=== PATIENT | male | born 1955 | race Caucasian/White ===

== ENCOUNTER 2017-12-06 19:04 | Emergency (ER) | payer MEDICAID ==
[~2017-12-06] VITALS: Ht 177.8 cm; Wt 168.2 kg
[~2017-12-06 19:04] MED LIST: ASPI-1265 PO; DULO60CA45 PO; FAMO20TA9 PO; FURO-149 PO; INSU100V36 SQ; LOSA50TA37 PO; METF500T PO; OXYC30TA88 PO; POTA8TAB46 PO; PREG50CA PO; SITA100T15 PO
[2017-12-06] MEDS ORDERED: dextrose 10% 250ml bag IV ONE (19:45)
[2017-12-06 19:47] LABS: BASOPHILS % (AUTO) 0.3 % (0-1); EOSINOPHILS # (AUTO) 0.2 X10'3 (0-0.9); EOSINOPHILS % (AUTO) 2.4 % (0-6); HEMATOCRIT 46.3 % (42.0-52.0); HEMOGLOBIN 15.9 g/dl (14.0-17.9); LYMPHOCYTES # (AUTO) 1.5 X10'3 (1.1-4.8); LYMPHOCYTES % (AUTO) 19.4 % (21-51); MEAN CORPUSCULAR HGB CONC 34.3 % (33.0-36.5); MEAN CORPUSCULAR VOLUME 93.3 FL (78-98); MEAN PLATELET VOLUME 8.7 FL (7.4-10.4); MONOCYTES # (AUTO) 0.9 X10'3 (0-0.9); MONOCYTES % (AUTO) 11.1 % (2-12); NEUTROPHILS # (AUTO) 5.2 X10'3 (1.8-7.7); NEUTROPHILS % (AUTO) 66.8 % (42-75); PLATELET COUNT 116 X10'3 (140-440); RED BLOOD COUNT 4.95 X10'6 (4.70-6.10); RED CELL DISTRIBUTION WIDTH 14.6 % (11.5-14.5); WHITE BLOOD COUNT 7.8 X10'3 (4.5-11.0)
[2017-12-06] MEDS ORDERED: Dextrose 10%-water IV solution 1,000 ML IV ONE (19:50)
[2017-12-06 20:01] LABS: INR 1.1 INR; PARTIAL THROMBOPLASTIN TIME 26 SECONDS (22-32); PROTHROMBIN TIME 11.2 SECONDS (9.0-12.0)
[2017-12-06 20:05] LABS: ALANINE AMINOTRANSFERASE 21 U/L (12-78); ALBUMIN 2.8 G/DL (3.4-5.0); ALBUMIN/GLOBULIN RATIO 0.7 (1.1-1.5); ALKALINE PHOSPHATASE 111 IU/L (46-116); ANION GAP 8 (8-16); ASPARTATE AMINO TRANSFERASE 25 U/L (10-37); BILIRUBIN,TOTAL 0.7 MG/DL (0.1-1.0); BLOOD UREA NITROGEN 31 MG/DL (7-18); BUN/CREATININE RATIO 25.2 (5.4-32.0); CALCIUM 9.4 MG/DL (8.5-10.1); CHLORIDE 98 MMOL/L (99-107); CREATININE 1.23 MG/DL (0.60-1.10); GLUCOSE 65 MG/DL (70-104); POTASSIUM 3.9 MMOL/L (3.5-5.1); SODIUM 136 MMOL/L (135-145); TOTAL CARBON DIOXIDE 30.5 MMOL/L (24-32); TOTAL PROTEIN 7.1 G/DL (6.4-8.2); eGFR 60 ML/MIN
[2017-12-06] MEDS ORDERED: methylPREDNISolone sod succ 125mg/2ml vial IV ONE (20:20)
[2017-12-06] MEDS ORDERED: iohexol 350MG/ML 100ml bottle IV ONE ×2 (20:27→20:53)
[2017-12-06] MEDS ORDERED: ipratropium/albuterol 3ml nebule NEB ONE (21:10)
[2017-12-06] MEDS ORDERED: normal saline 1000ML IV soln IVB ONE (21:20)
[2017-12-06] MEDS: magnesium 1gm/100ml D5W IVPB 100 ML IV SCH ×2 (21:29→22:39)
[2017-12-06] MEDS ORDERED: DOXY100C43 PO (21:43)
[2017-12-06] MEDS ORDERED: PRED20TA PO (21:43)
[2017-12-06 22:01] LABS: ABG HCO3 26.8 mmol/L (22.0-26.0); ABG OXYGEN SATURATION 89.2 % (95-98); ABG PCO2 (T) 45.5 mmHg (35.0-48.0); ABG PH (T) 7.386 (7.350-7.450); ABG PO2 (T) 55.1 mmHg (83-108); ALLEN'S TEST Positive; FCOHb 3.6 % (0.5-1.5); FLOW 4 L/min; FMetHb 0.2 % (0.3-1.12); FO2Hb 85.8 % (94-100); PATIENT TEMPERATURE 36.4; RESPIRATORY RATE (OBSERVED) 16 b/min; TOTAL HEMOGLOBIN 16.7 G/dl (14.0-18.0)
[2017-12-06 23:30] VITALS: BP 136/59
== END 2017-12-07 00:12 | disposition home or self-care (01) ==
LOC: ER 19:05
DX: J44.1 Chronic obstructive pulmonary disease with (acute) exacerbation (principal); L03.116 Cellulitis of left lower limb; L03.115 Cellulitis of right lower limb; I10 Essential (primary) hypertension; I25.2 Old myocardial infarction; I25.10 Atherosclerotic heart disease of native coronary artery without angina pectoris; I48.91 Unspecified atrial fibrillation; E11.9 Type 2 diabetes mellitus without complications; G89.29 Other chronic pain; Z90.49 Acquired absence of other specified parts of digestive tract; Z98.890 Other specified postprocedural states; Z88.6 Allergy status to analgesic agent; Z88.8 Allergy status to other drugs, medicaments and biological substances; Z79.82 Long term (current) use of aspirin; Z79.4 Long term (current) use of insulin; Z79.84 Long term (current) use of oral hypoglycemic drugs; Z79.899 Other long term (current) drug therapy
CPT/HCPCS: 36415; 36600; 71045; 71275; 80053; 82803; 82948; 83605; 83880; 84145; 84484; 85018; 85025; 85379; 85610; 85730; 87040; 87077; 87186; 93005; 94640; 94760; 96365; 96366; 96375; 99285; J2930; J7030; Q9967

== ENCOUNTER 2019-05-17 08:21 | Emergency (ER) | payer MEDICAID ==
[~2019-05-17] VITALS: Ht 182.9 cm; Wt 155.0 kg
[~2019-05-17 08:21] MED LIST changes: -LOSA50TA37 PO; +LOSA50TA64 PO
[2019-05-17] MEDS ORDERED: famotidine/PF 10 mg/ml inj IV ONE (09:05)
[2019-05-17] MEDS ORDERED: predniSONE 20 mg tablet PO ONE (09:05)
--- NOTE | 2019-05-17 09:50 | NUR ---
radiology at bedside.
[2019-05-17 10:13] LABS: BASOPHILS % (AUTO) 0.6 % (0-1); EOSINOPHILS # (AUTO) 0.2 X10'3 (0-0.9); EOSINOPHILS % (AUTO) 2.4 % (0-6); HEMATOCRIT 44.5 % (42.0-52.0); HEMOGLOBIN 15.6 g/dl (14.0-17.9); LYMPHOCYTES # (AUTO) 1.1 X10'3 (1.1-4.8); LYMPHOCYTES % (AUTO) 15.9 % (21-51); MEAN CORPUSCULAR HEMOGLOBIN 32.7 PG (27.0-31.0); MEAN CORPUSCULAR VOLUME 93.5 FL (78-98); MEAN PLATELET VOLUME 8.8 FL (7.4-10.4); MONOCYTES # (AUTO) 0.5 X10'3 (0-0.9); MONOCYTES % (AUTO) 6.6 % (2-12); NEUTROPHILS # (AUTO) 5.2 X10'3 (1.8-7.7); NEUTROPHILS % (AUTO) 74.5 % (42-75); PLATELET COUNT 100 X10'3 (140-440); RED BLOOD COUNT 4.76 X10'6 (4.70-6.10); RED CELL DISTRIBUTION WIDTH 13.7 % (11.5-14.5); WHITE BLOOD COUNT 6.9 X10'3 (4.5-11.0)
--- NOTE | 2019-05-17 10:16 | NUR ---
Rojas NATH at bedside.
[2019-05-17 10:27] LABS: ALANINE AMINOTRANSFERASE 24 U/L (12-78); ALBUMIN 3.1 G/DL (3.4-5.0); ALBUMIN/GLOBULIN RATIO 0.6 (1.1-1.5); ALKALINE PHOSPHATASE 143 IU/L (46-116); ANION GAP 6 (8-16); ASPARTATE AMINO TRANSFERASE 29 U/L (10-37); BLOOD UREA NITROGEN 20 MG/DL (7-18); BUN/CREATININE RATIO 17.1 (5.4-32.0); CALCIUM 9.2 MG/DL (8.5-10.1); CHLORIDE 98 MMOL/L (99-107); CREATININE 1.17 MG/DL (0.60-1.10); GLUCOSE 247 MG/DL (70-104); SODIUM 133 MMOL/L (135-145); TOTAL CARBON DIOXIDE 28.7 MMOL/L (24-32); TOTAL PROTEIN 8.4 G/DL (6.4-8.2); eGFR 63 ML/MIN
[2019-05-17 10:34] LABS: MAGNESIUM 1.6 MG/DL (1.5-2.4)
[2019-05-17] MEDS ORDERED: normal saline 1000ML IV soln IVB ONE (10:45)
[2019-05-17 12:33] VITALS: BP 121/71
== END 2019-05-17 12:36 | disposition home or self-care (01) ==
LOC: ER 08:22
DX: R11.10 Vomiting, unspecified (principal); L29.9 Pruritus, unspecified; T45.0X5A Adverse effect of antiallergic and antiemetic drugs, initial encounter; I48.91 Unspecified atrial fibrillation; I25.10 Atherosclerotic heart disease of native coronary artery without angina pectoris; I10 Essential (primary) hypertension; I25.2 Old myocardial infarction; E11.9 Type 2 diabetes mellitus without complications; G89.29 Other chronic pain; Z90.49 Acquired absence of other specified parts of digestive tract; Z98.890 Other specified postprocedural states; Z88.6 Allergy status to analgesic agent; Z79.82 Long term (current) use of aspirin; Z79.4 Long term (current) use of insulin; Z79.899 Other long term (current) drug therapy; Y92.9 Unspecified place or not applicable
CPT/HCPCS: 36415; 71045; 80053; 83605; 83735; 83880; 84145; 84484; 85025; 93005; 96361; 96374; 99284; J3490; J7030; J7512

== ENCOUNTER 2020-08-15 17:00 | Emergency (ER) | payer MEDICAID ==
[~2020-08-15] VITALS: Ht 182.9 cm; Wt 150.0 kg
[~2020-08-15 17:00] MED LIST changes: +OXYC30TA PO; -OXYC30TA88 PO
[2020-08-15 18:18] LABS: BASOPHILS % (AUTO) 0.3 % (0-1); EOSINOPHILS # (AUTO) 0.1 X10'3 (0-0.9); EOSINOPHILS % (AUTO) 0.5 % (0-6); HEMATOCRIT 42.4 % (42.0-52.0); HEMOGLOBIN 14.4 g/dl (14.0-17.9); LYMPHOCYTES # (AUTO) 0.5 X10'3 (1.1-4.8); LYMPHOCYTES % (AUTO) 4.7 % (21-51); MEAN CORPUSCULAR HEMOGLOBIN 33.3 PG (27.0-31.0); MEAN CORPUSCULAR VOLUME 97.7 FL (78-98); MEAN PLATELET VOLUME 9.7 FL (7.4-10.4); MONOCYTES # (AUTO) 0.6 X10'3 (0-0.9); MONOCYTES % (AUTO) 5.3 % (2-12); NEUTROPHILS # (AUTO) 10.4 X10'3 (1.8-7.7); NEUTROPHILS % (AUTO) 89.2 % (42-75); PLATELET COUNT 88 X10'3 (140-440); RED BLOOD COUNT 4.34 X10'6 (4.70-6.10); RED CELL DISTRIBUTION WIDTH 14.6 % (11.5-14.5); WHITE BLOOD COUNT 11.6 X10'3 (4.5-11.0)
[2020-08-15 18:31] LABS: PARTIAL THROMBOPLASTIN TIME 27 SECONDS (22-32)
[2020-08-15 18:42] LABS: ALANINE AMINOTRANSFERASE 18 U/L (12-78); ALBUMIN 2.8 G/DL (3.4-5.0); ALBUMIN/GLOBULIN RATIO 0.6 (1.1-1.5); ALKALINE PHOSPHATASE 89 IU/L (46-116); ANION GAP 4 (8-16); ASPARTATE AMINO TRANSFERASE 24 U/L (10-37); BILIRUBIN,TOTAL 1.2 MG/DL (0.1-1.0); BLOOD UREA NITROGEN 28 MG/DL (7-18); BUN/CREATININE RATIO 22.4 (5.4-32.0); CHLORIDE 100 MMOL/L (99-107); CREATININE 1.25 MG/DL (0.60-1.10); GLUCOSE 246 MG/DL (70-104); POTASSIUM 4.1 MMOL/L (3.5-5.1); SODIUM 138 MMOL/L (135-145); TOTAL CARBON DIOXIDE 33.7 MMOL/L (24-32); TOTAL PROTEIN 7.7 G/DL (6.4-8.2); eGFR 58 ML/MIN
--- NOTE | 2020-08-15 20:21 | NUR ---
PTS CAREGIVER, ALVINA GE, CALLING FOR UPDATE. CALL TRANSFERRED INTO THE PTS ROOM TO TALK TO DAUGHTER AND PT. PHAM HORNE AT BEDSIDE TO UPDATE ON PLAN OF CARE.
--- NOTE | 2020-08-15 20:27 | NUR ---
patient wants to go home: oswaldo san agreeing
[2020-08-15] MEDS ORDERED: ALBU8.5H8 INH (20:30)
[2020-08-15 20:55] VITALS: BP 103/85
== END 2020-08-15 20:45 | disposition home or self-care (01) ==
LOC: ER 17:00
DX: J44.1 Chronic obstructive pulmonary disease with (acute) exacerbation (principal); L97.529 Non-pressure chronic ulcer of other part of left foot with unspecified severity; L97.519 Non-pressure chronic ulcer of other part of right foot with unspecified severity; R60.0 Localized edema; I25.10 Atherosclerotic heart disease of native coronary artery without angina pectoris; I10 Essential (primary) hypertension; I25.2 Old myocardial infarction; E11.9 Type 2 diabetes mellitus without complications; G89.29 Other chronic pain; I48.91 Unspecified atrial fibrillation; F32.9 Major depressive disorder, single episode, unspecified; Z90.49 Acquired absence of other specified parts of digestive tract; Z98.890 Other specified postprocedural states; Z88.6 Allergy status to analgesic agent; Z88.8 Allergy status to other drugs, medicaments and biological substances; Z79.82 Long term (current) use of aspirin; Z79.84 Long term (current) use of oral hypoglycemic drugs; Z79.899 Other long term (current) drug therapy
CPT/HCPCS: 36415; 71045; 76937; 80053; 82948; 83605; 83880; 84484; 85025; 85610; 85730; 87040; 87077; 87186; 93005; 99285

== ENCOUNTER 2023-04-11 18:58 | Inpatient (IN) | payer BC, MEDICAID ==
[~2023-04-11] VITALS: Ht 182.9 cm; Wt 147.7 kg
[~2023-04-11 18:58] MED LIST changes: +ALBU8.5H17 INH; -DULO60CA45 PO; +DULO60CA61 PO
[2023-04-11 20:27] LABS: BASOPHILS % (AUTO) 0.3 % (0-1); EOSINOPHILS % (AUTO) 0.1 % (0-6); LYMPHOCYTES # (AUTO) 0.9 X10'3 (1.1-4.8); LYMPHOCYTES % (AUTO) 10.3 % (21-51); MEAN PLATELET VOLUME 8.6 FL (7.4-10.4); MONOCYTES # (AUTO) 0.5 X10'3 (0-0.9); MONOCYTES % (AUTO) 6.3 % (2-12); NEUTROPHILS # (AUTO) 6.9 X10'3 (1.8-7.7); PLATELET COUNT 89 X10'3 (140-440); WHITE BLOOD COUNT 8.3 X10'3 (4.5-11.0)
[2023-04-11 20:32] LABS: POTASSIUM 4.8 MMOL/L (3.5-5.1)
[2023-04-11 21:06] LABS: HEMATOCRIT 37.2 % (42.0-52.0); MEAN CORPUSCULAR HEMOGLOBIN 24.8 PG (27.0-31.0); MEAN CORPUSCULAR VOLUME 76.6 FL (78-98); RED BLOOD COUNT 4.85 X10'6 (4.70-6.10)
[2023-04-11 21:07] LABS: MEAN CORPUSCULAR HGB CONC 32.3 g/dL (33.0-36.5); RED CELL DISTRIBUTION WIDTH 18.6 % (11.5-14.5)
[2023-04-11 21:08] LABS: ALBUMIN 3.3 G/DL (3.4-5.0); ALKALINE PHOSPHATASE 100 IU/L (46-116); BLOOD UREA NITROGEN 23 MG/DL (7-18); SODIUM 140 MMOL/L (135-145)
[2023-04-11 21:23] LABS: INR 1.1 INR; PROTHROMBIN TIME 11.4 SECONDS (9.0-12.0)
[2023-04-11 21:31] LABS: ABG BASE EXCESS 5.6 mmol/L (-2.0-2.0); ABG HCO3 33.8 mmol/L (22.0-26.0); ABG OXYGEN SATURATION 85.2 % (94-97); ABG PCO2 (T) 66.6 mmHg (35.0-48.0); ABG PH (T) 7.322 (7.340-7.440); ALLEN'S TEST POSITIVE; FCOHb 2.1 % (0.0-3.9); FHHb 14.5 % (0.0-5.0); FMetHb 0.2 % (0.0-1.5); FO2Hb 83.2 % (94-97); MODE ROOM AIR; PATIENT TEMPERATURE 36.7
[2023-04-11 22:23] LABS: ALANINE AMINOTRANSFERASE 17 U/L (12-78); ALBUMIN/GLOBULIN RATIO 0.7 (1.1-1.5); ANION GAP 6 (8-16); ASPARTATE AMINO TRANSFERASE 25 U/L (10-37); BUN/CREATININE RATIO 21.1 (10.0-20.0); CALCIUM 9.6 MG/DL (8.5-10.1); CHLORIDE 101 MMOL/L (99-107); CREATININE 1.09 MG/DL (0.60-1.10); GLUCOSE 156 MG/DL (70-104); TOTAL CARBON DIOXIDE 33.4 MMOL/L (24-32); TOTAL PROTEIN 8.2 G/DL (6.4-8.2); eCRCL 73 ML/MIN; eGFR 68 ML/MIN
[2023-04-11] MEDS ORDERED: levoFLOXACIN-Levaquin 750MG/D5 150 ML IV ONE (22:39)
[2023-04-11 22:59] LABS: ABG BASE EXCESS 7.9 mmol/L (-2.0-2.0); ABG HCO3 36.4 mmol/L (22.0-26.0); ABG OXYGEN SATURATION 91.4 % (94-97); ABG PCO2 (T) 70.3 mmHg (35.0-48.0); ABG PO2 (T) 60.6 mmHg (75.0-100.0); ALLEN'S TEST Modified; FHHb 8.4 % (0.0-5.0); FMetHb 0.1 % (0.0-1.5); FO2Hb 89.5 % (94-97); MODE MASK - VENTI; PATIENT TEMPERATURE 36.7
[2023-04-11 23:15] VITALS: PULSE 83; RESP 16; O2SAT 96
[2023-04-12] VITALS (18 sets, daily range): BP systolic 105–159; BP diastolic 63–84; PULSE 84–117; RESP 16–34; TEMP 98.2–99.3; O2SAT 86–98
[2023-04-12] MEDS ORDERED: acetaminophen 325mg tablet PO PRN ×2 (00:20)
[2023-04-12] MEDS ORDERED: potassium Cl 40MEQ/1/2NS 520ml 520 ML IV PRN (00:20)
[2023-04-12] MEDS ORDERED: magnesium Cl slow-release 64mg tablet PO PRN (00:20)
[2023-04-12] MEDS ORDERED: potassium Cl 20 mEq SR tablet PO PRN ×2 (00:20)
[2023-04-12] MEDS ORDERED: magnesium 2GM in 50ml NS 50 ML IV PRN (00:20)
[2023-04-12] MEDS ORDERED: ondansetron/PF 4mg/2ml inj IV PRN (00:20)
[2023-04-12] MEDS ORDERED: magnesium 4gm in 100ml NS 100 ML IV PRN (00:20)
[2023-04-12 00:49] LABS: ABG BASE EXCESS 7.3 mmol/L (-2.0-2.0); ABG HCO3 34.9 mmol/L (22.0-26.0); ABG PCO2 (T) 63.2 mmHg (35.0-48.0); ABG PH (T) 7.359 (7.340-7.440); ABG PO2 (T) 80.1 mmHg (75.0-100.0); ALLEN'S TEST POSITIVE; FCOHb 1.7 % (0.0-3.9); FHHb 3.9 % (0.0-5.0); FMetHb 0.2 % (0.0-1.5); FO2Hb 94.2 % (94-97); MODE MASK - BIPAP; PATIENT TEMPERATURE 36.7; RESPIRATORY RATE 14 b/min; TOTAL HEMOGLOBIN 12.9 G/dl (14.0-17.9)
--- NOTE | 2023-04-12 01:28 | NUR ---
0115: PT TOOK OFF BIPAP MASK. RN WENT INTO ROOM TO ATTEMPT TO GET PT TO LET STAFF PUT MASK BACK ON. PT CONTINUED TO REFUSE TO HAVE BIPAP PUT BACK IN PLACE. RT CAME INTO ROOM AND ALSO TRIED TO GET PT TO ALLOW STAFF TO PLACE BIPAP BACK ON HIM. IT WAS EXPLAINED TO PT THAT THE MASK WAS HELPING HIM TO BREATH AND THAT WITHOUT IT HIS OXYGEN LEVEL WAS TOO LOW AND THAT IT WAS ALSO HELPING HIM TO BREATH BETTER. PT CONTINUED TO REFUSE. VENTURI MASK WAS ALSO ATTEMPTED BUT PT CONTINUED TO REFUSE. N/C ALSO ATTEMPT BUT AGAIN PT REFUSED. SOFIA HERNDON CAME INTO ROOM TO HELP CONVINCE PT TO LET STAFF PUT ANY FORM OF OXYGEN BACK ON HIM, SPECIFICALLY THE BIPAP. PT CONTINUED TO REFUSE. PT WAS MADE AWARE THAT HE WAS IN THE HOSPITAL TO GET HELP BUT THAT IF HE WASN'T GOING TO ALLOW STAFF TO HELP HIM THEN HE COULD GO HOME BUT THAT GOING HOME COULD MEAN THAT HE WOULD D/T HOW POORLY HIS BREATHING HAD AND HAS BEEN. PT THEN STARTED TO BECOME MORE VERBALLY AGGRESSIVE TOWARDS STAFF AND STARTED TO PULL ON HIS OXYGEN TUBING, TEARING HIS SHEATS OFF OF HIM, AND TO CLILMB OUT OF BED SAYING THAT HE WAS LEAVING. SECURITY WAS CALLED INTO THE ROOM WELL TO ASSIST AND ENSURE STAFF SAFETY.
--- NOTE | 2023-04-12 01:33 | NUR ---
PATIENT VERBALLY ABUSING STAFF REFUSING TO WEAR BI-PAP, WANTS TO GET UP AND LEAVE ATTEMPTING TO EDUCATE PATIENT THAT THEY ARE CONFUSED AND NEED TO STAY IN HOSPITAL AND KEEP BI-PAP ON , PATIENT REFUSING SECURITY CALLED FOR STAFF PROTECTION HOSPITALIST DR. GONZALEZ AND ED DR. TAMEZ BOTH NOTIFIED AND CURRENTLY AT DRChapis STATION DISCUSSING PATIENT, PATIENT IS ADMITTED WITH ADMISSION ORDERS IN DR. GONZALEZ NAME
--- NOTE | 2023-04-12 02:06 | NUR ---
PATIENT CONTINUES TO REFUSE TO WEAR ANY TYPE OF OXYGEN FOR STAFF. PATIENT RESTLESS, SITTING AT END OF BED, STANDING, WANTING TO WALK AROUND BUT UNABLE TO WALK WITHOUT HOLDING ONTO SOMETHING OR SOMEONE, PATIENT UNABLE STAND UP STRAIGHT. PATIENT ALSO DOESN'T WANT ANY MONITORING EQUIPMENT IN PLACE, WILL MOMENTARILY ALLOW EAR SPO2 TO BE PLACED ON HIM BUT WILL PULL IT OFF AFTR ONLY A FEW MINUTES. WAITING ON HOSPITALIST TO COME DOWN TO ASSESS AND POSSIBLY AMA PATIENT.
--- NOTE | 2023-04-12 02:10 | NUR ---
HOSPITALIST IN ROOM TRYING TO EXPLAIN CARE AND IMPORTANCE OF BIPAP AND OXYGEN TO PATIENT.
--- NOTE | 2023-04-12 02:14 | NUR ---
at bedside assessing patient do to patient wanting to leave ama
[2023-04-12] MEDS ORDERED: etomidate 2mg/ml inj. IV ONE (02:20)
[2023-04-12] MEDS ORDERED: succinylcholine 20mg/ml inj IV ONE (02:20)
[2023-04-12] MEDS ORDERED: LORazepam 2 mg/ml vial IV ONE ×3 (02:30→04:10)
--- NOTE | 2023-04-12 02:47 | NUR ---
0140: AFTER RECEIVING 2MG OF ATIVAN IV PATIENT FINALLY ALLOWED STAFF TO PLACE N/C AT 6L ON HIM AND EAR SPO2 MONITOR. 0145: PATIENT ASLEEP BUT WILL WAKE WITH MINIMAL STIMULATION. 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
[2023-04-12] MEDS: furosemide 20 MG/2 ML vial IV SCH ×3 (02:55→20:00)
[2023-04-12] MEDS: ipratropium/albuterol 3ml nebule NEB SCH ×6 (04:04→23:11)
--- NOTE | 2023-04-12 07:01 | NUR ---
Patient aggitated and confused, pulling at lines and attempting to leave. Patient encouraged to keep on nasal cannula. 1mg IV Ativan given. Patient then more cooperative and tolerating nasal cannula.
--- NOTE | 2023-04-12 07:18 | NUR ---
paged rt for bed 5, new neb txt
--- NOTE | 2023-04-12 08:00 | NUR ---
RT AND ECHO AT BEDSIDE
--- NOTE | 2023-04-12 08:41 | NUR ---
Patient in room ED 5. I have received report from Karyn BLACK and had the opportunity to ask questions and assume patient care.
--- NOTE | 2023-04-12 08:46 | NUR ---
Report called to SOFIA Muniz on PCU.
[2023-04-12] MEDS: methylPREDNISolone sod succ/PF 40mg inj. IV SCH ×2 (08:54→21:00)
[2023-04-12] MEDS: CefTRIAXone 2gm/D5W 50ml BAG 50 ML IV SCH (08:55)
--- NOTE | 2023-04-12 09:03 | NUR ---
TECH PAGED DR WILKES FOR PRN
--- NOTE | 2023-04-12 10:33 | NUR ---
Page Sent promotional table spacer PAGER ID: [phone] MESSAGE: [id number] Case. PT confused and combative. Paulino wilkinson called. pulling at lines, getting out of bed, combative toward staff. PT had to be restrained. I need orders for restraints , and a sitter. ALIYAHN jv conner. Bipap is on. Dalila @[phone] (240 character message out of a maximum of [phone]) CLOSE [X] SEND ANOTHER PAGE
[2023-04-12] MEDS ORDERED: haloperidol lactate 5mg/ml inj IM PRN (10:40)
[2023-04-12] MEDS ORDERED: LidoCAINE 2% Topical Jelly 11mL syringe TOP ONE (10:40)
--- NOTE | 2023-04-12 10:49 | NUR ---
late entry patient unable to follow directions, very confused and retaining Co2. Patient pulling at all lines and oxygen and became combative towards staff and would not stay in bed . 3 pt soft restraints were applied. I received telephone orders from Dr. Hernandez for a sitter, restraints, and haldol 5mg IM Q8 hrs prn for agitation and 2 mg ativan Q6H prn for agitation /aggression.
[2023-04-12] MEDS ORDERED: NYSTATIN 30 GM POWDER TP SCH (13:00)
[2023-04-12] MEDS: nystatin 15 GM powder TP SCH ×2 (13:00→21:13)
[2023-04-12 14:30] LABS: BASOPHILS % (AUTO) 0.2 % (0-1); EOSINOPHILS % (AUTO) 0.1 % (0-6); HEMATOCRIT 37.2 % (42.0-52.0); HEMOGLOBIN 11.6 g/dl (14.0-17.9); LYMPHOCYTES # (AUTO) 0.4 X10'3 (1.1-4.8); LYMPHOCYTES % (AUTO) 7.2 % (21-51); MEAN CORPUSCULAR HEMOGLOBIN 24.1 PG (27.0-31.0); MEAN CORPUSCULAR VOLUME 77.8 FL (78-98); MEAN PLATELET VOLUME 9.2 FL (7.4-10.4); MONOCYTES # (AUTO) 0.1 X10'3 (0-0.9); MONOCYTES % (AUTO) 1.3 % (2-12); NEUTROPHILS # (AUTO) 5.2 X10'3 (1.8-7.7); NEUTROPHILS % (AUTO) 91.2 % (42-75); PLATELET COUNT 86 X10'3 (140-440); RED BLOOD COUNT 4.79 X10'6 (4.70-6.10); WHITE BLOOD COUNT 5.7 X10'3 (4.5-11.0)
[2023-04-12 14:48] LABS: ANION GAP 4 (8-16); BLOOD UREA NITROGEN 22 MG/DL (7-18); BUN/CREATININE RATIO 22.9 (10.0-20.0); CALCIUM 9.3 MG/DL (8.5-10.1); CHLORIDE 102 MMOL/L (99-107); CREATININE 0.96 MG/DL (0.60-1.10); GLUCOSE 191 MG/DL (70-104); POTASSIUM 4.4 MMOL/L (3.5-5.1); SODIUM 141 MMOL/L (135-145); TOTAL CARBON DIOXIDE 34.7 MMOL/L (24-32); eCRCL 83 ML/MIN; eGFR 78 ML/MIN
[2023-04-12 14:54] LABS: HEMOGLOBIN A1C 6.3 % (4.5-6.2)
--- NOTE | 2023-04-12 18:37 | NUR ---
Problems reprioritized. Patient report given, questions answered & plan of care reviewed with Julia BLACK. Patient resting in bed in no acute distress.
[2023-04-12] MEDS: LORazepam 2 mg/ml vial IV PRN (21:00)
[2023-04-12] MEDS: enoxaparin 40mg/0.4ml syringe SQ SCH (21:00)
--- NOTE | 2023-04-12 21:00 | NUR ---
ATIVAN 2 MG GIVEN IV FOR AGITATION. DRUG SCANNED AND GIVEN BUT NOT SAVED ON EMAR
[2023-04-13] VITALS (20 sets, daily range): BP systolic 144–166; BP diastolic 60–84; PULSE 81–98; RESP 16–29; TEMP 97.4–98.4; O2SAT 89–96
[2023-04-13] MEDS: LORazepam 2 mg/ml vial IV PRN ×4 (02:35→23:09)
[2023-04-13] MEDS: ipratropium/albuterol 3ml nebule NEB SCH ×6 (03:27→23:28)
--- NOTE | 2023-04-13 06:13 | NUR ---
Patient in room PCU 3026. I have received report from Julia BLACK and had the opportunity to ask questions and assume patient care.Patient is resting in bed in no acute distress.
--- NOTE | 2023-04-13 06:24 | NUR ---
Patient report given, questions answered & plan of care reviewed with SOFIA Muniz
[2023-04-13] MEDS: CefTRIAXone 2gm/D5W 50ml BAG 50 ML IV SCH (07:26)
[2023-04-13] MEDS: furosemide 20 MG/2 ML vial IV SCH ×2 (07:26→19:47)
[2023-04-13] MEDS: nystatin 15 GM powder TP SCH ×3 (07:26→21:41)
[2023-04-13] MEDS: methylPREDNISolone sod succ/PF 40mg inj. IV SCH ×2 (07:26→19:47)
[2023-04-13 07:33] LABS: BASOPHILS % (AUTO) 0.1 % (0-1); EOSINOPHILS % (AUTO) 0 % (0-6); HEMATOCRIT 36.6 % (42.0-52.0); HEMOGLOBIN 11.2 g/dl (14.0-17.9); LYMPHOCYTES # (AUTO) 0.8 X10'3 (1.1-4.8); LYMPHOCYTES % (AUTO) 12.9 % (21-51); MEAN CORPUSCULAR HEMOGLOBIN 23.9 PG (27.0-31.0); MEAN CORPUSCULAR HGB CONC 30.7 g/dL (33.0-36.5); MEAN CORPUSCULAR VOLUME 77.8 FL (78-98); MEAN PLATELET VOLUME 8.3 FL (7.4-10.4); MONOCYTES # (AUTO) 0.5 X10'3 (0-0.9); MONOCYTES % (AUTO) 7.3 % (2-12); NEUTROPHILS # (AUTO) 5.1 X10'3 (1.8-7.7); NEUTROPHILS % (AUTO) 79.7 % (42-75); PLATELET COUNT 80 X10'3 (140-440); RED CELL DISTRIBUTION WIDTH 19.2 % (11.5-14.5); WHITE BLOOD COUNT 6.4 X10'3 (4.5-11.0)
[2023-04-13 07:48] LABS: ALANINE AMINOTRANSFERASE 8 U/L (12-78); ALBUMIN 2.9 G/DL (3.4-5.0); ALBUMIN/GLOBULIN RATIO 0.7 (1.1-1.5); ALKALINE PHOSPHATASE 84 IU/L (46-116); ANION GAP 3 (8-16); ASPARTATE AMINO TRANSFERASE 19 U/L (10-37); BILIRUBIN,TOTAL 0.7 MG/DL (0.1-1.0); BLOOD UREA NITROGEN 26 MG/DL (7-18); BUN/CREATININE RATIO 23.2 (10.0-20.0); CALCIUM 9.5 MG/DL (8.5-10.1); CHLORIDE 105 MMOL/L (99-107); CREATININE 1.12 MG/DL (0.60-1.10); GLUCOSE 177 MG/DL (70-104); SODIUM 145 MMOL/L (135-145); TOTAL CARBON DIOXIDE 36.6 MMOL/L (24-32); TOTAL PROTEIN 7.2 G/DL (6.4-8.2); eCRCL 71 ML/MIN; eGFR 66 ML/MIN
--- NOTE | 2023-04-13 08:13 | NUR ---
ASSISTING RN WITH PT CARE, 2 NURSES HAVE ATTEMPTED IV STARTED, NOT SUCCESSFUL, WILL PAGE PICC NURSE
[2023-04-13 11:14] LABS: ANISOCYTOSIS 2+; MICROCYTOSIS 1+; PLATELET ESTIMATE DECREASED
[2023-04-13 11:36] LABS: STOMATOCYTES FEW
[2023-04-13] MEDS ORDERED: glucagon, human recombinant 1mg kit SUBCUT PRN ×2 (11:40→12:30)
[2023-04-13] MEDS ORDERED: MESSAGE TO PHARMACY PO ONE ×2 (11:40→12:30)
[2023-04-13] MEDS ORDERED: insulin Lispro (HumaLOG) vial - multi-dose SQ SCH ×2 (11:40→12:30)
[2023-04-13] MEDS ORDERED: dextrose 50%-water 50ml dispensing syringe IV PRN ×4 (11:40→12:30)
[2023-04-13] MEDS ORDERED: DEXTROSE 15 GM of carb/4 tabs (each vial/BOTTLE has 4 tablets) PO PRN ×4 (11:40→12:30)
--- NOTE | 2023-04-13 13:13 | NUR ---
PRESSURE ULCER EDUCATION: DEFINITION: A pressure ulcer is an area of skin that breaks down when you stay in one position too long. The constant pressure against the skin reduces the blood flow to that area and the affected tissue dies. CAUSES: "Being bedridden or in a wheelchair "Fragile skin "Having a chronic condition, such as diabetes or vascular disease "Inability to move certain parts of your body without assistance "Older age "Incontinence of urine or stool SYMPTOMS: "A reddened area that DOES NOT turn white when pressed on - this can be the beginning of a pressure ulcer "A blister, deep sore or a crater - these can be advanced pressure ulcers FIRST AID: "Relieve the pressure on this area "Keep the area clean and dry "Call your primary doctor if you see any of the above symptoms "DO NOT massage the area "DO NOT use a donut shaped or ring shaped pillow- these actually interfere with the blood flow and cause complications PREVENTION: "Check for pressure ulcers everyday "Change position at least every two hours to relieve pressure "Use items that help relieve pressure- pillows, sheepskin, foam padding, and powders. "Keep skin clean and dry "Eat healthy well balanced meals "Exercise daily IF YOU SEE ANY OF THESE SYMPTOMS WHILE IN THE HOSPITAL - TELL YOUR NURSE IMMEDIATELY. IF YOU SEE ANY OF THESE SYMPTOMS WHILE AT HOME OR HAVE ANY QUESTIONS OR CONCERNS ABOUT PRESSURE ULCERS - CALL YOUR PRIMARY DOCTOR IMMEDIATELY. Addendum: 04/13/23 at 1313 by Kevon Dias RN Amended: Links added.
[2023-04-13] MEDS ORDERED: PIOG45TA65 PO (13:50)
[2023-04-13] MEDS ORDERED: DULO60CA65 PO (13:50)
[2023-04-13] MEDS ORDERED: FURO80TA3 PO (13:50)
[2023-04-13] MEDS ORDERED: OXYC1TAB15 PO (13:50)
[2023-04-13] MEDS ORDERED: PYRI-3 PO (13:50)
[2023-04-13] MEDS ORDERED: FEXO-310 PO (13:50)
[2023-04-13] MEDS ORDERED: FLO0.4C PO (13:50)
[2023-04-13] MEDS ORDERED: FOLI1TAB27 PO (13:50)
[2023-04-13] MEDS ORDERED: CARV3.122 PO (13:50)
[2023-04-13] MEDS ORDERED: ASPI-1397 PO (13:50)
[2023-04-13] MEDS ORDERED: PREG75CA76 PO (13:50)
[2023-04-13] MEDS ORDERED: METF-438 PO (13:50)
[2023-04-13] MEDS ORDERED: LOVA40TA2 PO (13:50)
[2023-04-13] MEDS ORDERED: PANT40TA54 PO (13:50)
[2023-04-13] MEDS ORDERED: BUDE10.22 PO (13:50)
[2023-04-13] MEDS ORDERED: POTA-206 PO (13:50)
[2023-04-13] MEDS: enoxaparin 40mg/0.4ml syringe SQ SCH (19:43)
[2023-04-13] MEDS ORDERED: insulin glargine (Lantus) pen - multi-dose SQ SCH (21:00)
[2023-04-13] MEDS: insulin glargine (Lantus) pen - multi-dose SQ SCH (21:40)
[2023-04-14] VITALS (16 sets, daily range): BP systolic 131–151; BP diastolic 48–71; PULSE 70–89; RESP 12–26; TEMP 97.7–98.8; O2SAT 90–99
[2023-04-14] MEDS: ipratropium/albuterol 3ml nebule NEB SCH ×6 (03:48→23:00)
[2023-04-14] MEDS: nystatin 15 GM powder TP SCH ×3 (08:00→22:25)
[2023-04-14 08:01] LABS: BASOPHILS % (AUTO) 0.1 % (0-1); EOSINOPHILS % (AUTO) 0 % (0-6); HEMATOCRIT 36.9 % (42.0-52.0); HEMOGLOBIN 11.4 g/dl (14.0-17.9); LYMPHOCYTES # (AUTO) 0.8 X10'3 (1.1-4.8); LYMPHOCYTES % (AUTO) 9.7 % (21-51); MEAN CORPUSCULAR HEMOGLOBIN 23.8 PG (27.0-31.0); MEAN CORPUSCULAR VOLUME 76.9 FL (78-98); MEAN PLATELET VOLUME 8.4 FL (7.4-10.4); MONOCYTES # (AUTO) 0.5 X10'3 (0-0.9); MONOCYTES % (AUTO) 6.2 % (2-12); NEUTROPHILS # (AUTO) 6.7 X10'3 (1.8-7.7); PLATELET COUNT 94 X10'3 (140-440); RED CELL DISTRIBUTION WIDTH 19.2 % (11.5-14.5)
[2023-04-14] MEDS: methylPREDNISolone sod succ/PF 40mg inj. IV SCH ×2 (08:01→20:22)
[2023-04-14] MEDS: furosemide 20 MG/2 ML vial IV SCH ×2 (08:15→20:23)
[2023-04-14 08:16] LABS: ALANINE AMINOTRANSFERASE 18 U/L (12-78); ALBUMIN 3.1 G/DL (3.4-5.0); ALBUMIN/GLOBULIN RATIO 0.7 (1.1-1.5); ALKALINE PHOSPHATASE 79 IU/L (46-116); ANION GAP 6 (8-16); ASPARTATE AMINO TRANSFERASE 27 U/L (10-37); BILIRUBIN,TOTAL 0.9 MG/DL (0.1-1.0); BLOOD UREA NITROGEN 26 MG/DL (7-18); CALCIUM 9.5 MG/DL (8.5-10.1); CHLORIDE 99 MMOL/L (99-107); GLUCOSE 146 MG/DL (70-104); SODIUM 137 MMOL/L (135-145); TOTAL CARBON DIOXIDE 32.2 MMOL/L (24-32); TOTAL PROTEIN 7.3 G/DL (6.4-8.2); eCRCL 80 ML/MIN; eGFR 75 ML/MIN
[2023-04-14 08:18] LABS: POTASSIUM 3.7 MMOL/L (3.5-5.1)
[2023-04-14] MEDS: CefTRIAXone 2gm/D5W 50ml BAG 50 ML IV SCH (09:06)
--- NOTE | 2023-04-14 10:24 | NUR ---
promotional table spacer promotional table spacer Page Sent promotional table spacer PAGER ID: [phone] MESSAGE: ROOM 17a-in presence of pt's corrected CO2, pt is still confused-would you like nursing to bring him down for head CT? He is able to sit still; please advise-Josephine/Mary [phone]
[2023-04-14] MEDS: HYDROcodone/acetaminophen 5mg/325mg tablet PO PRN ×2 (16:42→22:25)
--- NOTE | 2023-04-14 18:40 | NUR ---
Patient in room PCU 3017. I have received report from Josephine BLACK and had the opportunity to ask questions and assume patient care.
[2023-04-14] MEDS: enoxaparin 40mg/0.4ml syringe SQ SCH (20:00)
[2023-04-14] MEDS: insulin glargine (Lantus) pen - multi-dose SQ SCH (22:15)
[2023-04-15 02:00] VITALS: BP 138/45; PULSE 89; RESP 20; TEMP 98.3; O2SAT 93
[2023-04-15] MEDS: ipratropium/albuterol 3ml nebule NEB SCH (03:00)
[2023-04-15 05:06] VITALS: O2SAT 93
[2023-04-15 06:00] VITALS: BP 110/65; PULSE 92; RESP 16; TEMP 98.6; O2SAT 97
--- NOTE | 2023-04-15 06:26 | NUR ---
Patient in room PCU 3017. I have received report from Traci BLACK and had the opportunity to ask questions and assume patient care.
--- NOTE | 2023-04-15 06:30 | NUR ---
Problems reprioritized. Patient report given, questions answered & plan of care reviewed with Suzy BLACK.
[2023-04-15 06:40] LABS: BASOPHILS # (AUTO) 0.1 X10'3 (0-0.2); BASOPHILS % (AUTO) 0.8 % (0-1); EOSINOPHILS % (AUTO) 0 % (0-6); HEMATOCRIT 37.7 % (42.0-52.0); HEMOGLOBIN 11.7 g/dl (14.0-17.9); LYMPHOCYTES # (AUTO) 0.7 X10'3 (1.1-4.8); MEAN CORPUSCULAR HEMOGLOBIN 23.9 PG (27.0-31.0); MEAN CORPUSCULAR HGB CONC 31.1 g/dL (33.0-36.5); MEAN CORPUSCULAR VOLUME 76.9 FL (78-98); MEAN PLATELET VOLUME 8.1 FL (7.4-10.4); MONOCYTES # (AUTO) 0.5 X10'3 (0-0.9); NEUTROPHILS # (AUTO) 5.9 X10'3 (1.8-7.7); NEUTROPHILS % (AUTO) 82.2 % (42-75); PLATELET COUNT 105 X10'3 (140-440); RED CELL DISTRIBUTION WIDTH 19.3 % (11.5-14.5); WHITE BLOOD COUNT 7.2 X10'3 (4.5-11.0)
[2023-04-15 06:55] LABS: ALANINE AMINOTRANSFERASE 27 U/L (12-78); ALBUMIN 3.3 G/DL (3.4-5.0); ALBUMIN/GLOBULIN RATIO 0.8 (1.1-1.5); ALKALINE PHOSPHATASE 82 IU/L (46-116); ANION GAP 8 (8-16); ASPARTATE AMINO TRANSFERASE 34 U/L (10-37); BILIRUBIN,TOTAL 1.3 MG/DL (0.1-1.0); BLOOD UREA NITROGEN 32 MG/DL (7-18); BUN/CREATININE RATIO 29.6 (10.0-20.0); CALCIUM 9.6 MG/DL (8.5-10.1); CHLORIDE 97 MMOL/L (99-107); CREATININE 1.08 MG/DL (0.60-1.10); GLUCOSE 170 MG/DL (70-104); POTASSIUM 3.6 MMOL/L (3.5-5.1); SODIUM 135 MMOL/L (135-145); TOTAL PROTEIN 7.5 G/DL (6.4-8.2); eCRCL 74 ML/MIN; eGFR 68 ML/MIN
[2023-04-15 07:58] LABS: PLATELET ESTIMATE DECREASED
[2023-04-15 07:59] LABS: ANISOCYTOSIS 2+; ELLIPTOCYTES FEW; HYPOCHROMASIA 1+; MICROCYTOSIS 1+; POLYCHROMASIA 1+
[2023-04-15] MEDS ORDERED: ipratropium/albuterol 3ml nebule NEB PRN (08:25)
[2023-04-15] MEDS: CefTRIAXone 2gm/D5W 50ml BAG 50 ML IV SCH (08:34)
[2023-04-15] MEDS: methylPREDNISolone sod succ/PF 40mg inj. IV SCH (08:35)
[2023-04-15] MEDS: furosemide 20 MG/2 ML vial IV SCH (08:36)
[2023-04-15 09:00] VITALS: RESP 24
[2023-04-15 11:00] VITALS: BP 137/61; PULSE 79; RESP 20; TEMP 97.5; O2SAT 95
[2023-04-15] MEDS: HYDROcodone/acetaminophen 5mg/325mg tablet PO PRN (11:24)
[2023-04-15] MEDS: nystatin 15 GM powder TP SCH (11:25)
[2023-04-15] MEDS ORDERED: POTA-206 PO (11:45)
[2023-04-15] MEDS ORDERED: DULO60CA65 PO (11:45)
[2023-04-15] MEDS ORDERED: METF-1203 PO (11:45)
[2023-04-15] MEDS ORDERED: FURO20TA4 PO (11:45)
--- NOTE | 2023-04-15 12:59 | NUR ---
Pt D/C per hospitalist. PIV removed, cannula intact. Tele discontinued. All belongings taken home by patient. Reviewed discharge instructions with patient, all questions and concerns addressed. RX e-scribed to patient's pharmacy. Pt wheeled down to lobby by RN and taken home by patient's daughter. Pt stable and appropriate for discharge.
== END 2023-04-15 12:59 | disposition home or self-care (01) | DRG 193 ==
LOC: ER 18:59 → ED HOLD 04-12 00:24 → PCU 3S 04-12 09:29
PROVIDERS: ADMIT Internal Medicine; ATTEND Internal Medicine
PROC: 5A09357 Assistance with Respiratory Ventilation, Less than 24 Consecutive Hours, Continuous Positive Airway Pressure (ICD-10-PCS; principal; 2023-04-11)
PROC: 5A09357 Assistance with Respiratory Ventilation, Less than 24 Consecutive Hours, Continuous Positive Airway Pressure (ICD-10-PCS; 2023-04-12)
PROC: 5A0935A Assistance with Respiratory Ventilation, Less than 24 Consecutive Hours, High Flow/Velocity Cannula (ICD-10-PCS; 2023-04-14)
DX: J18.9 Pneumonia, unspecified organism (principal); G93.41 Metabolic encephalopathy; J96.01 Acute respiratory failure with hypoxia; J96.02 Acute respiratory failure with hypercapnia; I50.32 Chronic diastolic (congestive) heart failure; I48.91 Unspecified atrial fibrillation; I11.0 Hypertensive heart disease with heart failure; R41.82 Altered mental status, unspecified; F17.200 Nicotine dependence, unspecified, uncomplicated; G89.29 Other chronic pain; I25.10 Atherosclerotic heart disease of native coronary artery without angina pectoris; I08.3 Combined rheumatic disorders of mitral, aortic and tricuspid valves; D50.9 Iron deficiency anemia, unspecified; Z20.822 Contact with and (suspected) exposure to COVID-19; F32.A Depression, unspecified; J43.9 Emphysema, unspecified; E11.9 Type 2 diabetes mellitus without complications; Z91.041 Radiographic dye allergy status; Z91.048 Other nonmedicinal substance allergy status; Z88.8 Allergy status to other drugs, medicaments and biological substances; Z79.899 Other long term (current) drug therapy; Z79.82 Long term (current) use of aspirin; I25.2 Old myocardial infarction; Z90.49 Acquired absence of other specified parts of digestive tract
CPT/HCPCS: 36415; 36600; 70450; 71045; 80048; 80053; 82140; 82803; 82948; 83036; 83605; 83880; 84145; 84484; 85008; 85018; 85025; 85610; 85730; 87040; 87811; 92508; 92616; 93306; 94640; 94660; 94760; 96365; 97110; 97116; 97161; 97530; 99285; A4314; A4615; A5200; A6213; G0378; J0696; J1630; J1650; J1815; J1940; J1956; J2060; J2920; J7040

== ENCOUNTER 2023-05-19 12:25 | Emergency (ER) | payer BC, MEDICAID ==
[~2023-05-19] VITALS: Ht 177.8 cm; Wt 145.4 kg
[~2023-05-19 12:25] MED LIST changes: -ALBU8.5H17 INH; -ASPI-1265 PO; +ASPI-1397 PO; +BUDE10.22 PO; +CARV3.122 PO; -DULO60CA61 PO; +DULO60CA65 PO; -FAMO20TA9 PO; +FLO0.4C PO; +FOLI1TAB27 PO; -FURO-149 PO; +FURO20TA4 PO; -INSU100V36 SQ; -LOSA50TA64 PO; +LOVA40TA2 PO; -METF500T PO; +OXYC1TAB15 PO; -OXYC30TA PO; +PANT40TA54 PO; +POTA-206 PO; -POTA8TAB46 PO; -PREG50CA PO; +PREG75CA76 PO; +PYRI-3 PO; -SITA100T15 PO
[2023-05-19 12:27] VITALS: BP 155/70; PULSE 71; RESP 16; TEMP 97.7; O2SAT 90
[2023-05-19 13:51] LABS: EOSINOPHILS # (AUTO) 0.1 X10'3 (0-0.9); HEMOGLOBIN 12.2 g/dl (14.0-17.9); MONOCYTES # (AUTO) 0.3 X10'3 (0-0.9)
[2023-05-19 13:53] LABS: BASOPHILS % (AUTO) 0.4 % (0-1); EOSINOPHILS % (AUTO) 1.5 % (0-6); HEMATOCRIT 39.2 % (42.0-52.0); LYMPHOCYTES % (AUTO) 19.6 % (21-51); MEAN CORPUSCULAR HEMOGLOBIN 24.8 PG (27.0-31.0); MEAN CORPUSCULAR HGB CONC 31.2 g/dL (33.0-36.5); MEAN CORPUSCULAR VOLUME 79.5 FL (78-98); MEAN PLATELET VOLUME 8.3 FL (7.4-10.4); MONOCYTES % (AUTO) 6.7 % (2-12); NEUTROPHILS # (AUTO) 3.6 X10'3 (1.8-7.7); NEUTROPHILS % (AUTO) 71.8 % (42-75); PLATELET COUNT 93 X10'3 (140-440); RED BLOOD COUNT 4.94 X10'6 (4.70-6.10); RED CELL DISTRIBUTION WIDTH 17.1 % (11.5-14.5)
[2023-05-19 14:08] LABS: ALANINE AMINOTRANSFERASE 12 U/L (12-78); ALBUMIN 3.2 G/DL (3.4-5.0); ALBUMIN/GLOBULIN RATIO 0.7 (1.1-1.5); ALKALINE PHOSPHATASE 115 IU/L (46-116); ANION GAP 5 (8-16); ASPARTATE AMINO TRANSFERASE 17 U/L (10-37); BILIRUBIN,TOTAL 0.6 MG/DL (0.1-1.0); BLOOD UREA NITROGEN 11 MG/DL (7-18); BUN/CREATININE RATIO 12.5 (10.0-20.0); C-REACTIVE PROTEIN 1.37 MG/DL (0.0-0.5); CHLORIDE 101 MMOL/L (99-107); CREATININE 0.88 MG/DL (0.60-1.10); GLUCOSE 221 MG/DL (70-104); SODIUM 137 MMOL/L (135-145); TOTAL CARBON DIOXIDE 31.1 MMOL/L (24-32); TOTAL PROTEIN 7.6 G/DL (6.4-8.2); eCRCL 85 ML/MIN; eGFR 87 ML/MIN
== END 2023-05-19 19:04 | disposition left against medical advice (07) ==
LOC: ER 12:27
DX: R60.0 Localized edema (principal); Z53.21 Procedure and treatment not carried out due to patient leaving prior to being seen by health care provider
CPT/HCPCS: 36415; 72100; 73630; 80053; 85025; 85651; 86140; 99281

== ENCOUNTER 2024-06-07 10:59 | Emergency (ER) | payer BC, MEDICAID ==
[~2024-06-07] VITALS: Ht 185.4 cm; Wt 118.2 kg
[2024-06-07 12:40] VITALS: BP 138/76; PULSE 76; O2SAT 98
[2024-06-07 12:54] VITALS: RESP 18
[2024-06-07] MEDS: oxyCODONE/APAP 5-325mg tablet PO ONE (12:54)
== END 2024-06-07 13:28 | disposition home or self-care (01) ==
LOC: ER 10:59
DX: T83.89XA Other specified complication of genitourinary prosthetic devices, implants and grafts, initial encounter (principal); I48.91 Unspecified atrial fibrillation; I25.10 Atherosclerotic heart disease of native coronary artery without angina pectoris; E11.9 Type 2 diabetes mellitus without complications; I10 Essential (primary) hypertension; I25.2 Old myocardial infarction; G89.29 Other chronic pain; F32.A Depression, unspecified; Z88.8 Allergy status to other drugs, medicaments and biological substances; Z91.018 Allergy to other foods; Z79.82 Long term (current) use of aspirin; Z79.52 Long term (current) use of systemic steroids; Z79.899 Other long term (current) drug therapy; Z90.49 Acquired absence of other specified parts of digestive tract
CPT/HCPCS: 99283; A4314

== ENCOUNTER 2024-10-09 09:31 | Outpatient (CLI) | payer BC, MEDICAID ==
[~2024-10-09] VITALS: Ht 200.7 cm; Wt 120.2 kg
[~2024-10-09 09:31] MED LIST changes: +ATOR20TA66 PO; -FLO0.4C PO; +IODIXANOL 320 MG/ML INFUS..BTL 100ML IV ONE; +LISI2.5T14 PO; +SPIR25TA5 PO; +TAMS-55 PO
[2024-10-09 10:15] LABS: BASOPHILS % (AUTO) 0.4 % (0-1); EOSINOPHILS # (AUTO) 0.2 X10'3 (0-0.9); EOSINOPHILS % (AUTO) 4.5 % (0-6); HEMATOCRIT 39.6 % (42.0-52.0); HEMOGLOBIN 13.5 g/dl (14.0-17.9); LYMPHOCYTES # (AUTO) 0.9 X10'3 (1.1-4.8); LYMPHOCYTES % (AUTO) 22.9 % (21-51); MEAN CORPUSCULAR HEMOGLOBIN 31.6 PG (27.0-31.0); MEAN CORPUSCULAR HGB CONC 34.1 g/dL (33.0-36.5); MEAN CORPUSCULAR VOLUME 92.7 FL (78-98); MEAN PLATELET VOLUME 8.6 FL (7.4-10.4); MONOCYTES # (AUTO) 0.3 X10'3 (0-0.9); MONOCYTES % (AUTO) 8.3 % (2-12); NEUTROPHILS # (AUTO) 2.6 X10'3 (1.8-7.7); NEUTROPHILS % (AUTO) 63.9 % (42-75); PLATELET COUNT 64 X10'3 (140-440); RED BLOOD COUNT 4.27 X10'6 (4.70-6.10); RED CELL DISTRIBUTION WIDTH 14.5 % (11.5-14.5)
[2024-10-09 10:35] LABS: INR 1.1 INR; PROTHROMBIN TIME 11.3 SECONDS (9.0-12.0)
[2024-10-09 10:36] LABS: ALANINE AMINOTRANSFERASE 19 U/L (12-78); ALBUMIN 3.1 G/DL (3.4-5.0); ALBUMIN/GLOBULIN RATIO 0.8 (1.1-1.5); ALKALINE PHOSPHATASE 121 IU/L (46-116); ANION GAP 4 (8-16); ASPARTATE AMINO TRANSFERASE 16 U/L (10-37); BLOOD UREA NITROGEN 24 MG/DL (7-18); BUN/CREATININE RATIO 17.4 (10.0-20.0); CHLORIDE 104 MMOL/L (99-107); CREATININE 1.38 MG/DL (0.60-1.10); GLUCOSE 123 MG/DL (70-104); POTASSIUM 4.6 MMOL/L (3.5-5.1); PRO BRAIN NATRIURETIC PEPTIDE 406 PG/ML (0-125); SODIUM 141 MMOL/L (135-145); TOTAL CARBON DIOXIDE 32.8 MMOL/L (24-32); TOTAL PROTEIN 6.8 G/DL (6.4-8.2); eGFR 51 ML/MIN
[2024-10-09 10:48] LABS: APTT 28 SECONDS (22-32)
[2024-10-09 11:30] LABS: PLATELET ESTIMATE DECREASED
--- NOTE | 2024-10-09 12:06 | RADIOLOGY REPORT ---
DI CHEST,TWO VIEWS CLINICAL HISTORY: SOB COMPARISON: None TECHNIQUE: Frontal and lateral view of the chest was obtained FINDINGS: Lines and Tubes: None Lungs: No focal consolidation. Pleura: No effusion. No pneumothorax. Cardiomediastinal contours: Unremarkable Bones: No acute osseous abnormality. IMPRESSION: No acute cardiopulmonary disease.
[2024-10-09 13:25] LABS: ABG HCO3 25.6 mmol/L (21.0-28.0); ABG PCO2 (T) 40.5 mmHg (35.0-48.0); ABG PH (T) 7.418 (7.350-7.450); ABG PO2 (T) 69.1 mmHg (83.0-108.0); ALLEN'S TEST POSITIVE; FCOHb 2.1 % (0.5-1.5); FHHb 5.9 % (0.0-5.0); FMetHb 0.3 % (0.0-1.5); FO2Hb 91.7 % (94.0-98.0); MODE ROOM AIR; TOTAL HEMOGLOBIN 14.2 G/dl (13.5-17.5)
[2024-10-09] MEDS: albuterol 2.5 MG/3 ML nebule NEB ONE (13:31)
[2024-10-09 13:36] VITALS: PULSE 70; RESP 18; O2SAT 94
[2024-10-09 13:49] VITALS: PULSE 62; RESP 16
--- NOTE | 2024-10-09 16:26 | VASCULAR REPORT ---
Carotid Duplex Date: 10/09/2024 10:24 AM Clinical History: Preop TAVR Comparison: None Technique: Duplex Doppler evaluation of the extracranial carotid and vertebral arteries including col or Doppler and spectral/pulsed waveform analysis was performed. Findings: RIGHT SIDE: The peak systolic velocities are 112 cm/s in the distal CCA and 90 cm/s in the proximal ICA.The ICA/C CA ratio is less than 1. The external carotid artery is patent with peak systolic velocity of 87 cm/s proximally. There is appropriate antegrade flow in the right vertebral artery, 47 cm/s LEFT SIDE: The peak systolic velocities are 90 cm/s in the distal CCA and 67 cm/s in the proximal ICA.. The ICA/ CCA ratio is less than 1. The external carotid artery is patent with peak systolic velocity of 76 cm/s proximally. Left vertebral is not visualized IMPRESSION: 1. No hemodynamically significant stenosis noted in the right carotid system. 2. No hemodynamically significant stenosis noted in the left carotid system. 3. Left vertebral not visualized. 4. Reference: Radiology 2003; [id number]:[id number]
--- NOTE | 2024-10-10 14:44 | PROCEDURE NOTE - Respiratory ---
Procedure Note-Respiratory Providers to Copies To 1: LIZA GERMAIN MD Procedure Name: This is a complete pulmonary function study dated October 09, 2024. Hemoglobin measurement was done as part of the study. There was also a room air blood gas obtained from this patient on the same date. Spirometry measurements: There is reduction in both the forced vital capacity and the FEV1. The FEV1 ratio is also reduced. Several of the flow rate measurements show significant reduction. After inhaled bronchodilator there is only very minimal improvement in some of the flow rate measurements. Lung volume measurements: There is elevation of the residual volume and functional residual capacity. This suggests some degree of air trapping within the lungs. The total lung capacity remains normal. Lung diffusion measurement: The DLCO measurement is normal. It is noted that the hemoglobin measurement is normal. Airway resistance measurement: The airway resistance is not elevated. Conclusion: This study is abnormal. There is evidence for moderately severe ob structive ventilatory defect. The patient shows very minimal improvement with inhaled bronchodilator. The patient shows evidence of air trapping within the lungs. All of these findings are consistent with the patient's diagnosis of smoking-related COPD. It is strongly recommended that the patient abstain from cigarette smoking. Bronchodilator therapy should be continued for this patient. We have no previous studies for comparison. A blood gas was drawn from this patient while the patient was breathing room air. The blood pH and pCO2 levels are normal. The room air PO2 level is reduced at 69 mmHg. This blood gas is an improvement over a previous blood gas drawn April 11, 2023. On April 11, 2023 the patient showed pCO2 retention with respiratory acidosis. DAWSON SANDOVAL MD October 10, 2024 14:44
== END 2024-10-10 23:59 | disposition home or self-care (01) ==
LOC: RAD 09:31
PROVIDERS: ATTEND Internal Medicine Cardiovascular Disease
DX: R06.02 Shortness of breath (principal); I35.0 Nonrheumatic aortic (valve) stenosis; I65.29 Occlusion and stenosis of unspecified carotid artery
CPT/HCPCS: 36600; 71046; 71275; 74175; 75572; 80053; 82803; 83880; 85008; 85018; 85025; 85610; 85730; 93880; 94060; 94727; 94729; 94760; Q9967